=== PATIENT | female | born 1985 | race Caucasian/White ===

== ENCOUNTER 2017-04-13 13:09 | Emergency (ER) | payer SELFPAY ==
[2017-04-13 13:43] VITALS: BP 161/99
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
== END 2017-04-13 14:25 | disposition home or self-care (01) ==
LOC: ER 13:09
DX: S20.219A Contusion of unspecified front wall of thorax, initial encounter (principal); W10.2XXA Fall (on)(from) incline, initial encounter; Y93.9 Activity, unspecified; Y92.009 Unspecified place in unspecified non-institutional (private) residence as the place of occurrence of the external cause